=== PATIENT | male | born 1975 | race Caucasian/White ===

== ENCOUNTER 2019-05-01 11:41 | Observation (INO) | payer BC, SELFPAY ==
[2019-05-01 12:16] LABS: #Basophils 0.1 thou/uL (0.0-0.2); #Eosinphils 0.1 thou/uL (0.0-0.7); #Lymphocytes 1.8 thou/uL (1.20-3.40); #Monocytes 0.6 thou/uL (0.11-0.59); #Neutrophils 6.7 thou/uL (1.40-6.50); %Basophils 0.9 % (0.0-1.0); %Eosinophils 0.8 % (0.0-10.0); %Lymphocytes 19.5 % (21.0-51.0); %Neutrophils 72.8 % (42.0-75.0); Hemoglobin 18.1 g/dL (14.0-18.0); Mean Corpuscular HGB CONC 31.5 g/dL (32.0-36.0); Mean Corpuscular Hemoglobin 29.2 pg (27.0-31.0); Mean Corpuscular Volume 92.7 fL (78.0-98.0); Mean Platelet Volume 8.4 fL (7.4-10.4); Platelet Count 240 thou/uL (130-400); RBC Distribution Width 12.5 % (11.5-14.5); Red Blood Cell (RBC) Count 6.18 mill/uL (4.70-6.10); White Blood Cell (WBC) Count 9.2 thou/uL (4.8-10.8)
[2019-05-01] MEDS ORDERED: Adacel (T-DAP) 0.5 ML SYRINGE ONE (12:19)
[2019-05-01] MEDS ORDERED: Fentanyl 100 MCG/2 ML VIAL ONE (12:19)
[2019-05-01] MEDS ORDERED: Pantoprazole 40 MG VIAL ONE (12:19)
[2019-05-01] MEDS ORDERED: Ondansetron PF 4 MG/2 ML Vial ONE (12:19)
[2019-05-01] MEDS ORDERED: Pantoprazole 80 MG in Sodium Chloride 0.9% 100 ML IVP SCH (12:30)
[2019-05-01 12:45] LABS: ALT (SGPT) 38 U/L (8-55); AST (SGOT) 30 U/L (5-34); Albumin 4.8 g/dL (3.5-5.0); Alcohol Less than 10 mg/dL (Less than 10); Alkaline Phosphatase 44 U/L (40-110); Anion Gap 16 mmol/L (10-20); BUN (Urea Nitrogen) 20 mg/dL (8.9-20.6); Bilirubin, Total 1.2 mg/dL (0.2-1.2); Calc. Creatinine Clearance 0 mL/min (70-130); Calcium 10.2 mg/dL (7.8-10.44); Carbon Dioxide 27 mmol/L (22-29); Chloride 100 mmol/L (98-107); Estimated GFR-MDRD 66; Globulin 2.7 g/dL (2.4-3.5); Glucose 131 mg/dL (70-105); Lipase 22 U/L (8-78); Potassium 4.8 mmol/L (3.5-5.1); Protein, Total 7.5 g/dL (6.0-8.3); Sodium 138 mmol/L (136-145)
--- NOTE | 2019-05-01 12:49 | CT ---
CT BRAIN WITHOUT CONTRAST: HISTORY: Loss of consciousness, trauma FINDINGS: No evidence of acute infarct, hemorrhage, midline shift or abnormal extra-axial fluid collections is seen. The ventricular size is appropriate and the basilar cisterns are patent. The bony calvarium is intact. There is a left periorbital soft tissue hematoma. There is fluid in the left maxillary sinus. CT facial bones to be helpful to evaluate for facial frac ture. IMPRESSION: No CT evidence of acute intracranial process.
[2019-05-01] MEDS ORDERED: Lidocaine 1% w/Epinephrine 1:100K 20 ML VIAL ONE (12:50)
--- NOTE | 2019-05-01 13:02 | CT ---
CT CERVICAL SPINE WITH CORONAL AND SAGITTAL REFORMATIONS AND NO IV CONTRAST: HISTORY: Trauma, neck pain FINDINGS: Mild degenerative changes are present. No fracture, subluxation or facet malalignment is identified. No prevertebral soft tissue swelling is apparent. The visualized lung apices are unremarkable. IMPRESSION: No CT evidence for fracture or traumatic subluxation.
--- NOTE | 2019-05-01 13:13 | CT ---
CT abdomen and pelvis with IV contrast HISTORY: Abdominal pain. Fall. Injury. Melena. FINDINGS: Lung bases are clear. Tiny cysts within the liver. Largest within the periphery of the ante rior segment right liver lobe, measuring up to 0.7 cm greatest diameter. There is also a 0.6 cm cyst within the posterior posterior cortex of the left kidney. No hydronephrosis or stones visible. Pancreas has a normal appearance. No free air or free fluid. No evidence of bowel obstruction. Urinar y bladder is incompletely distended. Appendix is not inflamed. Degenerative changes lumbar spine including stenosis of each neural foramen at the lumbosacral juncti on. IMPRESSION: No acute abnormalities are demonstrated to explain the patient's pain.
[2019-05-01 13:18] LABS: PTT 20.3 SEC (22.9-36.1)
--- NOTE | 2019-05-01 13:19 | CT ---
CT Facial Bones WO Con HISTORY: Injury, head laceration COMPARISON: None. FINDINGS: There is an air-fluid level in the left maxillary sinus. There is mucosal disease in the le ft maxillary sinus. There are mildly displaced fractures involving the left nasal bone, right nasal bone and the floor of the left orbit. There is left periorbital soft tissue swelling. There is accomp anying herniation of fat through the bony defect in the floor of the left orbit. Clinical correlation for muscle entrapment is recommended. The remainder of the facial bones are otherwise intact. No temporomandibular dislocation is seen. IMPRESSION: Fractures of the nasal bones and the floor of the left orbit.
--- NOTE | 2019-05-01 13:56 | RAD ---
XR Chest 1 View Portable History: Syncope Comparison: None. Findings: Lungs are clear. No pneumothorax or effusion. Cardiac silhouette and mediastinal contours a re within normal limits. No acute osseous abnormality. Impression: No acute intrathoracic abnormality.
[2019-05-01] MEDS ORDERED: Bacitracin 1 PK ONE (14:10)
[2019-05-01] MEDS ORDERED: Iopamidol-370 76% 500 ML 1 ML ONE (14:52)
[2019-05-01] MEDS ORDERED: Morphine 4 MG/ML VIAL ONE (15:03)
[2019-05-01 15:36] LABS: Lactic Acid 1.4 mmol/L (0.5-2.2)
[2019-05-01] MEDS ORDERED: Acetaminophen 325 MG TAB PO PRN (15:51)
[2019-05-01] MEDS ORDERED: Ondansetron ODT 4 MG TAB PO PRN (15:51)
[2019-05-01] MEDS ORDERED: Acetaminophen 650 MG Suppository PR PRN (15:51)
--- NOTE | 2019-05-01 16:07 | PDOC.HHP ---
Hospitalist HPI - History of Present Illness Syncope, hematemesis History of Present Illness: PCP: none The patient is a 44/M with PMH significant for GERD that presents to the ER for the above compaint. The patient reports that last night he became nauseated around midnight, he awoke and vomited thick, dark blood. He did this again around 0300. He could not estimate the amount of blood. He denies any associated abdominal pain or diarrhea. Reports drinking alcohol socially, however, his birthday was Wednesday, so he consumed more than usual, stating "enough to call an uber". Denies any heavy wretching or dry heaving prior to vomiting. Denies history of chronic NSAID usage or recent fever or chills. After each episode, he returned to bed. Around 1000, he decided to go to work. On the way to work, he became nauseated and pulled his truck over. He exited the vehicle to vomit... and the next thing he knew he was laying on the ground. He noticed some blood from his head. He called his brother to come and take him to the ER. He denied having any chest pain, heart palpitations, sob, headache prior to his syncopal episode. ED Course: VS T 98.5F, BP 149/92, HR 95, RR 22, Sp02 99% RA CT brain negative for any acute intracranial process CT cervical spine negative for fracture or subluxation CT facial bones positive for nasal fracture and left orbit floor Surgery was consulted in ER and signed off, no surgical intervention at this time. Hgb 18.1 Hct 57.3 The patient had a small laceration above left eye that received 5 sutures. Given NS 1L Protonix drip zofran and fentanyl Adacel injection Hospitalist ROS - Review of Systems Constitutional: denies: fever, chills, sweats, weakness, malaise, other Eyes: denies: vision change ENT: denies: ear pain, ear discharge, nose pain, nose discharge, nose congestion , mouth pain, mouth swelling, throat pain, throat swelling, other Respiratory: denies: cough, dry, shortness of breath, hemoptysis, SOB with excertion, pleuritic pain, sputum, wheezing, other Cardiovascular: denies: chest pain, palpitations, orthopnea, paroxysmal noc. dyspnea, edema, light headedness, other Gastrointestinal: reports: nausea, vomiting, melena Genitourinary: denies: dysuria, frequency, incontinence, hematuria, retention, other Musculoskeletal: reports: other (generalized muscular pain) Skin: reports: lesions Neurological: denies: numbness, incoordination, change in speech, confusion Hospitalist History - Past Medical History Source: patient Cardiac: reports: no pertinent history, Other Pulmonary: reports: no pertinent history [employer] WORK[employer]: reports: no pertinent history Gastrointestinal: reports: GERD Heme/Onc: reports: no pertinent history Hepatobiliary: reports: no pertinent history Psych: reports: no pertinent history Musculoskeletal: reports: no pertinent history Rheumatologic: reports: no pertinent history ENT: reports: no pertinent history Renal/: reports: no pertinent history Endocrine: reports: no pertinent history Dermatology: reports: no pertinent history - Past Surgical History Past Surgical History: reports: Hernia Repair (with mesh) - Family History Family History: reports: cardiac disorder (CABG (father)) - Social History Smoking Status: Never smoker Alcohol: reports: Occassional Drugs: reports: none Living Situation: Alone Occupation: lives in eflow Activity level: independent ambulation - Exam General Appearance: NAD, awake alert Eye: anicteric sclera Eye - other findings: Right Pupil round and reactive to light, unable to assess left pupil ENT - other findings: laceration above left eye, dressing c/d/i Neck: supple, no JVD, no thyromegaly, no lymphadenopathy Heart: RRR, no murmur, no gallops, no rubs, normal peripheral pulses Respiratory: CTAB, no wheezes, no rales, no ronchi, normal chest expansion Gastrointestinal: soft, non-tender, non-distended, normal bowel sounds, no guarding, no rigidity Extremities - other findings: multiple abrasions to bilateral knees and hands Skin: no rashes Neurological: normal sensation to touch, no weakness, no focal deficits Musculoskeletal: normal tone, normal strength Psychiatric: normal affect, A&O x 3 Hospitalist Results - Labs Result Diagrams: 05/01/19 23:53 05/01/19 12:02 Lab results: WBC 9.2 thou/uL (4.8-10.8) 05/01/19 12:02 Hgb 18.1 g/dL (14.0-18.0) H 05/01/19 12:02 Hct 57.3 % (42.0-52.0) H 05/01/19 12:02 MCV 92.7 fL (78.0-98.0) 05/01/19 12:02 Plt Count 240 thou/uL (130-400) 05/01/19 12:02 Neutrophils % 72.8 % (42.0-75.0) 05/01/19 12:02 Sodium 138 mmol/L (136-145) 05/01/19 12:02 Potassium 4.8 mmol/L (3.5-5.1) 05/01/19 12:02 Chloride 100 mmol/L (98-107) 05/01/19 12:02 Carbon Dioxide 27 mmol/L (22-29) 05/01/19 12:02 BUN 20 mg/dL (8.9-20.6) 05/01/19 12:02 Creatinine 1.20 mg/dL (0.7-1.3) 05/01/19 12:02 Glucose 131 mg/dL (70-105) H 05/01/19 12:02 Lactic Acid 1.4 mmol/L (0.5-2.2) 05/01/19 15:10 Calcium 10.2 mg/dL (7.8-10.44) 05/01/19 12:02 Total Bilirubin 1.2 mg/dL (0.2-1.2) 05/01/19 12:02 AST 30 U/L (5-34) 05/01/19 12:02 ALT 38 U/L (8-55) 05/01/19 12:02 Alkaline Phosphatase 44 U/L (40-110) 05/01/19 12:02 Serum Total Protein 7.5 g/dL (6.0-8.3) 05/01/19 12:02 Albumin 4.8 g/dL (3.5-5.0) 05/01/19 12:02 Lipase 22 U/L (8-78) 05/01/19 12:02 - Radiology Interpretation CT scan - head Status: report reviewed by me CT scan - abdomen Status: report reviewed by me Hospitalist H&P A/P - Problem (1) Syncope Code(s): R55 - SYNCOPE AND COLLAPSE Status: Acute Assessment and Plan: Admit to telemetry unit observation status Patient had vomiting episode prior to syncopal episode. IVF hydration Perform orthostatic vital signs (2) Hematemesis with nausea Code(s): K92.0 - HEMATEMESIS Status: Acute Assessment and Plan: Patient has been T&S Check H&H Q 6 hours Consult GI- Dr. Mulligan Continue protonix drip Tylenol and Tramadol analgesia, Avoid NSAIDs Zofran prn nausea CL diet NPO after midnight No DVT prophylaxis (3) Melena Code(s): K92.1 - MELENA Status: Acute Assessment and Plan: Consult GI - Dr. Mulligan Check H&H q 6 hours Continue protonix drip obtain orthostatic vital signs CL diet, NPO after midnight No DVT prophylaxis (4) Nasal bone fracture Code(s): S02.2XXA - FRACTURE OF NASAL BONES, INIT ENCNTR FOR CLOSED FRACTURE Status: Acute Qualifiers: Encounter type: initial encounter Fracture type: closed Qualified Code(s) : S02.2XXA - Fracture of nasal bones, initial encounter for closed fracture Assessment and Plan: OFM surgery consulted () and signed off in ER, no surgical intervention necessary at this time RICE therapy Follow up with OFM surgery in 1-2 weeks. (5) Left orbit fracture Code(s): S02.85XA - FRACTURE OF ORBIT, UNSPECIFIED, INIT Status: Acute Qualifiers: Encounter type: initial encounter Fracture type: closed Qualified Code(s) : S02.85XA - Fracture of orbit, unspecified, initial encounter for closed fracture Assessment and Plan: OFM Surgery consulted (Dr. Steele) and signed off in ER, no surgical intervention necessary at this time RICE therapy Follow up with OFM surgery in 1-2 weeks (6) Laceration of forehead without complication Code(s): S01.81XA - LACERATION W/O FOREIGN BODY OF OTH PART OF HEAD, INIT ENCNTR Status: Acute Qualifiers: Encounter type: initial encounter Qualified Code(s): S01.81XA - Laceration without foreign body of other part of head, initial encounter Assessment and Plan: Patient dressing clean, dry, intact Documented 5 sutures Analgesia prn Consult wound care Follow up outpatient for suture removal
[2019-05-01] MEDS: Sodium Chloride 0.9% 1,000 ML IV SCH ×2 (16:41→23:59)
[2019-05-01 16:46] VITALS: BMI 32.5
[2019-05-01] MEDS: traMADol HCl 50 MG TAB PO PRN ×2 (17:17→23:24)
[2019-05-01] MEDS: Ondansetron PF 4 MG/2 ML Vial IVP PRN (17:17)
[2019-05-01] MEDS ORDERED: Mupirocin 2% Ointment 22 GM Tube TOP PRN (21:00)
--- NOTE | 2019-05-02 00:22 | CON ---
DATE OF CONSULTATION: 05/01/2019 REQUESTING PROVIDER: Ozzie Gill NP REASON FOR CONSULTATION: Hematemesis. HISTORY OF PRESENT ILLNESS: Hair Jones is a 44-year-old man with a history of intermittent GERD symptoms, for which he will take Nexium as needed. He also has some arthritis pains, for which he will take ibuprofen, maybe twice per week. He has no prior gastrointestinal or liver history. He reports that a couple of days ago in the evening, he had several alcoholic beverages celebrating his birthday. He did well that night and through most of the day yesterday. About noon time yesterday, he started feeling full, skipped dinner, and tried to go to bed early, but he was not really having any abdominal pain or nausea at that time. But then, he woke up about midnight last night with acute nausea and had an episode of black hematemesis with the appearance of some blood clots. He went back to sleep and then had another episode of hematemesis at about 3:00 a.m., and then one final episode of hematemesis at about 7:00 a.m., also passed what appeared to be a dark stool at that time. This had never happened before. There was no significant abdominal pain. No fever with this. He tried to go to work and then as he was loading up his 18 [address], he had a syncopal episode and woke up on the ground. He suffered nasal fracture and orbital fracture. He presented to the emergency department, actually found to have elevated hemoglobin to 18.1, BUN only 20, and creatinine 1.20. Cranial CT as well as CT of the abdomen and pelvis demonstrate no acute processes. He is hemodynamically stable. He was started on Protonix drip and is tolerating clear liquids this afternoon. REVIEW OF SYSTEMS: Full review of systems including constitutional, head, eyes, ears, nose, throat, GI, , cardiovascular, respiratory, musculoskeletal, and neurologic systems is negative except as noted in the HPI. PAST MEDICAL HISTORY: GERD and hernia repair. ALLERGIES: NO KNOWN DRUG ALLERGIES. OUTPATIENT MEDICATIONS: 1. Ibuprofen p.r.n., probably twice per week. 2. Nexium p.r.n., rarely for heartburn symptoms. INPATIENT MEDICATIONS: 1. Protonix drip. 2. Zofran p.r.n. 3. Tramadol p.r.n. SOCIAL HISTORY: No smoking or drug use. Alcohol use is occasional. He did have several alcoholic beverages two days ago. FAMILY HISTORY: Negative for GI illness or malignancy. PHYSICAL EXAMINATION: VITAL SIGNS: Temperature 98.8, pulse 101, blood pressure 116/72, and 96% oxygen saturation on room air. GENERAL: A 44-year-old man, lying in bed comfortably, in no distress. SKIN: He has ecchymoses to the face, particularly the left orbital area. Laceration to the forehead, which is well wrapped. No jaundice. No rashes were palpable. EYES: No scleral icterus. Extraocular movements intact. ENT: Mucous membranes are moist. No oral lesions. LYMPH: No submandibular or supraclavicular lymphadenopathy. THYROID: Nontender to palpation. HEART: Regular rate and rhythm. LUNGS: Clear to auscultation bilaterally. ABDOMEN: Bowel sounds present. Soft, nontender to palpation throughout. EXTREMITIES: No peripheral edema. VESSELS: Radial pulses 2+ bilaterally. NEURO: Cranial nerves 2 through 12 intact bilaterally. No focal deficits. LABORATORY STUDIES: Hemoglobin 18.1, WBC 9.2, and platelets 240. INR 1.0, BUN 20, creatinine 1.20, glucose 131, total bilirubin 1.2, alkaline phosphatase 44, AST 30, ALT 38, and albumin 4.8. Alcohol level is negative. Lipase only 22, lactic acid only 1.4. IMAGING STUDIES: CT of the abdomen and pelvis demonstrated few hepatic and renal cysts. Normal-appearing bowel and pancreas. Brain CT shows no acute processes. ASSESSMENT AND PLAN: 1. Acute hematemesis. 2. Syncopal episode. I had a long discussion with the patient about his presentation. Hemoglobin is actually elevated, but this is consistent with dehydration. I do not think his syncopal episode was likely to have resulted from acute blood loss, but rather from dehydration. That being said, further investigation is certainly warranted to identify bleeding source. He is hemodynamically stable today. Continue with Protonix drip, trend H and H, and we are going to plan for diagnostic esophagogastroduodenoscopy tomorrow. Please call anytime in the meantime with questions or concerns or significant changes in his clinical status. Job ID: [id number]
[2019-05-02 01:57] LABS: Hemoglobin 15.1 g/dL (14.0-18.0)
[2019-05-02 04:44] LABS: #Eosinphils 0.1 thou/uL (0.0-0.7); #Lymphocytes 2.2 thou/uL (1.20-3.40); #Monocytes 0.5 thou/uL (0.11-0.59); #Neutrophils 3.7 thou/uL (1.40-6.50); %Basophils 0.6 % (0.0-1.0); %Eosinophils 1.5 % (0.0-10.0); %Lymphocytes 33.2 % (21.0-51.0); %Monocytes 8.2 % (0.0-10.0); %Neutrophils 56.5 % (42.0-75.0); Hemoglobin 14.5 g/dL (14.0-18.0); Mean Corpuscular HGB CONC 32.3 g/dL (32.0-36.0); Mean Corpuscular Hemoglobin 29.8 pg (27.0-31.0); Mean Corpuscular Volume 92.3 fL (78.0-98.0); Mean Platelet Volume 8.3 fL (7.4-10.4); Platelet Count 172 thou/uL (130-400); RBC Distribution Width 12.4 % (11.5-14.5); Red Blood Cell (RBC) Count 4.86 mill/uL (4.70-6.10); White Blood Cell (WBC) Count 6.5 thou/uL (4.8-10.8)
[2019-05-02 05:06] LABS: Anion Gap 10 mmol/L (10-20); BUN (Urea Nitrogen) 16 mg/dL (8.9-20.6); Calc. Creatinine Clearance 137 mL/min (70-130); Calcium 8.3 mg/dL (7.8-10.44); Carbon Dioxide 27 mmol/L (22-29); Chloride 106 mmol/L (98-107); Estimated GFR-MDRD 83; Glucose 89 mg/dL (70-105); Potassium 4.1 mmol/L (3.5-5.1); Sodium 139 mmol/L (136-145)
[2019-05-02 06:04] LABS: Hemoglobin 14.7 g/dL (14.0-18.0)
[2019-05-02] MEDS: traMADol HCl 50 MG TAB PO PRN ×2 (06:14→12:59)
[2019-05-02] MEDS: Sodium Chloride 0.9% 1,000 ML IV SCH ×2 (07:41→15:06)
[2019-05-02] MEDS ORDERED: Lidocaine 1% PF 5 ML VIAL ONE (10:11)
[2019-05-02] MEDS ORDERED: PROPOFOL 200 MG/20 ML VIAL ONE (10:11)
[2019-05-02] MEDS: Ondansetron PF 4 MG/2 ML Vial IVP PRN (13:01)
--- NOTE | 2019-05-02 13:29 | PDOC.HOSPP ---
- Subjective Encounter Date: 05/02/19 Encounter Time: 12:20 Subjective: pt returned from EGD and wants to leave as' i dont want to stay here'. - Objective Vital Signs & Weight: Vital Signs (12 hours) Temp Pulse Resp BP BP BP BP 05/02/19 07:35 98.7 F 88 16 119/71 121/70 110/59 L 05/02/19 04:25 98.1 F 84 16 111/65 Pulse Ox 05/02/19 07:35 95 05/02/19 04:25 96 Weight Weight 220 lb I&O: 05/01/19 05/02/19 05/03/19 06:59 06:59 06:59 Intake Total 2115 Output Total 950 Balance 1165 Result Diagrams: 05/02/19 05:58 05/02/19 04:30 Hospitalist ROS - Medication Medications: Active Medications Generic Name Dose Route Start Last Admin Trade Name Freq PRN Reason Stop Dose Admin Acetaminophen 650 mg 05/01/19 15:51 05/01/19 20:33 Tylenol PO 650 mg Q4H PRN Administration Headache/Fever/Mild Pain (1-3) Sodium Chloride 1,000 mls @ 125 mls/hr 05/01/19 16:00 05/02/19 07:41 Normal Saline 0.9% IV 1,000 mls .Q8H SERGIO Administration Mupirocin 0 gm 05/01/19 21:00 05/02/19 09:03 Bactroban 2% Ointment TOP 1 applic TIDPRN PRN Administration SKIN ABRASIONS Ondansetron HCl 4 mg 05/01/19 15:51 05/02/19 13:01 Zofran IVP 4 mg Q6H PRN Administration Nausea/Vomiting Pantoprazole Sodium 40 mg 05/02/19 09:00 05/02/19 09:00 Protonix PO Not Given DAILY SERGIO Sodium Chloride 10 ml 05/01/19 21:00 05/02/19 07:45 Flush - Normal Saline IVF 10 ml Q12HR SERGIO Administration Tramadol HCl 50 mg 05/01/19 15:54 05/02/19 12:59 Ultram PO 50 mg Q6H PRN Administration Pain - Exam General Appearance: NAD, awake alert General - other findings: dressing on his head, left eye orbital ecymoses. Eye: PERRL ENT: normocephalic atraumatic Neck: supple, symmetric Heart: RRR Respiratory: CTAB, normal chest expansion Gastrointestinal: soft, non-distended, normal bowel sounds Hosp A/P - Plan hematemesis s/p EGD - poss. tear - rpt pending - PO PPI Left orbital fracture Fall --OMF seen and s/o -fw in the clinci w.. Dr. Steele in 2 wks -RICE Syncoe -d/t hypovolumia start CLD and advance monitor tonight for any CLEANING, blurriness etc. and wound care if stable, likely dc deep..
[2019-05-02 13:33] VITALS: TEMP 98.6
[2019-05-02 13:34] VITALS: BP 134/76
--- NOTE | 2019-05-02 14:51 | OP ---
DATE OF PROCEDURE: 05/02/2019 PREPROCEDURE DIAGNOSES: 1. History of hematemesis and syncope. Hemoglobin stable at 14. 2. Severe dehydration on admission. 3. Intermittent history of NSAIDs. POSTPROCEDURE DIAGNOSIS: La-Kirk tear at GE junction. No active bleeding in the process of healing. RECOMMENDATIONS: 1. Change IV Protonix to p.o. He will be able to discharge later today and can take p.o. without any nausea. 2. Avoid NSAIDs. 3. We will sign off. Please call if I can be of any further assistance in patient's care. ANESTHESIA: TIVA. PROCEDURE IN DETAIL: After the patient was informed of the risks, benefits, and possible complications of endoscopy including perforation, bleeding, reaction to medication, and aspiration, informed consent was obtained. The patient was brought to endoscopy suite, where he was sedated in gradual fashion. Once he was comfortable, a bite block was placed inside the orifice. The endoscope was advanced to the esophagus, stomach, and second and third portions of the duodenum and slowly removed. There was no evidence of gastritis or gastric ulcers. There was normal duodenum to the third portion. There was no blood in the stomach. Retroflexed views were normal except for edema at the GE junction from below. Evaluated the GE junction from above. There was a well demarcated La-Kirk tear. There was gilliland-red spot, but no visible vessel, no clot. This was a low risk lesion for rebleeding at this time. The scope was removed. The patient tolerated the procedure well with no complications. Recommendations, as above. Job ID: [id number]
--- NOTE | 2019-05-03 00:32 | DIS ---
DATE OF ADMISSION: 05/01/2019 DATE OF DISCHARGE: 05/02/2019 DISCHARGE DIAGNOSES: 1. Hematemesis, status post EGD. 2. Left orbital fracture secondary to fall. 3. Syncope secondary to hypovolemia. DISCHARGE MEDICATIONS: Protonix 40 mg daily. He has no other home medications. HOSPITAL COURSE: Please see H and P and my progress note for more details. A 44-year-old male presented with fall and had some left orbital fracture and oral maxillofacial surgery, seen him in the ER and they want him to follow up in the clinic with Dr. Steele in 2 weeks, management mostly RICE. The patient had syncopal episode, thought secondary to anemia. However, it is due to dehydration. The patient had an episode of hematemesis. EGD showed possible tear. Report is still pending. However, they recommended daily PPI and given a prescription for Protonix daily. Wound Care also addressed his head wound on the left orbital area and they cleared him for discharge. DISCHARGE INSTRUCTIONS: Activity as tolerated. Regular diet. Follow up with PCP in one week. Follow up with Dr. Steele in 2 weeks for suture removal. TIME SPENT: Discharge time less than 30 minutes. Job ID: [id number] MTDD
== END 2019-05-02 16:08 | disposition home or self-care (01) ==
LOC: ERS 11:41 → 2SW 16:31
PROVIDERS: ADMIT Internal Medicine; ATTEND Internal Medicine
PROC: 0DJ08ZZ Inspection of Upper Intestinal Tract, Via Natural or Artificial Opening Endoscopic (ICD-10-PCS; principal; 2019-05-02)
DX: K22.6 Gastro-esophageal laceration-hemorrhage syndrome (principal); E86.1 Hypovolemia; K21.9 Gastro-esophageal reflux disease without esophagitis; S02.85XA Fracture of orbit, unspecified, initial encounter for closed fracture; W19.XXXA Unspecified fall, initial encounter; Z79.899 Other long term (current) drug therapy; Z98.890 Other specified postprocedural states
CPT/HCPCS: 36415; 70450; 70486; 71045; 72125; 74177; 80048; 80053; 80307; 83605; 83690; 85025; 85610; 85730; 86850; 86900; 86901; 90471; 90715; 93005; 94760; 96361; 96365; 96366; 96375; 96376; C9113; G0378; J2001; J2270; J2405; J2704; J3010; J3490; L0120; Q9967

== ENCOUNTER 2021-07-26 02:51 | Emergency (ER) | payer OTHER, SELFPAY | END 2021-07-26 03:51 | LOC: ERS 02:51 | DX: S00.01XA Abrasion of scalp, initial encounter (principal); V89.2XXA Person injured in unspecified motor-vehicle accident, traffic, initial encounter; Z87.19 Personal history of other diseases of the digestive system | CPT/HCPCS: 99284 ==